=== PATIENT | male | born 1980 | race Caucasian/White ===

== ENCOUNTER 2019-03-13 17:04 | Emergency (ER) | payer OTHER ==
[2019-03-13] MEDS ORDERED: NALOXONE HCL 0.4 MG/ML VIAL ONE ×2 (17:24→18:15)
[2019-03-13 17:48] VITALS: BMI 29.7
[2019-03-13] MEDS ORDERED: NALOXONE HCL 0.4 MG/ML VIAL IVPUSH ONE ×3 (17:57→18:06)
--- NOTE | 2019-03-13 18:03 | PDOC ---
History of Present Illness - General Chief Complaint: Overdose Stated Complaint: Overdose Time Seen by Provider: 03/13/19 17:28 History Source: Patient Exam Limitations: No Limitations - History of Present Illness Initial Comments: 03/13/19 19:08 39 yo male pmh HIV (CD4 count 413 and viral load undetectable) and heroin abuse (only snorts, never OD or required hospitalization/rehab) presents to the ED after a Heroin OD. EMS report finding heroin at the house, pt unconscious given 1mg narcan IV with improvement however, on arrival to the ED, pt became less conscious, RR 10 with 02 saturation in the 80s, placed on 4L NC, saturation in the high 90s, and given 0.4 mg Narcan with 2 min of improvement. Another 0.4 mg narcan given and again, only a few min of improvement in RR to the mid teens observed with shallow breaths. Pt continued to rest in bed with eyes closed however responsive to verbal stimuli when promted. Pt protecting airway with normal O2 saturation and AOX4. Another 1 mg Narcan given and pt shows significant improvement, sitting up in bed, eyes open, RR 18 and up with 100% O2 on RA, drinking and eating. Past History - Past Medical History Allergies/Adverse Reactions: Allergies Allergy/AdvReac Type Severity Reaction Status Date / Time No Known Allergies Allergy Verified 03/13/19 17:35 Home Medications: Ambulatory Orders Dextroamphetamine/Amphetamine [Adderall Xr 30 mg Capsule] 1 cap PO DAILY Emtricitab/Rilpiviri/Tenof Ala [Odefsey Tablet] 1 each PO DAILY #30 tablet 02/18 Nicotine Polacrilex [Nicotine Gum] 4 mg BC QID #2 box 03/04/19 Blood Pressure Test Kit-Medium [Blood Pressure Monitor] 1 each MC DAILY #1 kit 03/09/19 Ciprofloxacin 0.3% Eye Drops [Ciloxan 0.3% Eye Drops --] 1 drop OU Q2H #1 drops 03/09/19 Anemia: No Asthma: No Cancer: No Cardiac Disorders: No CVA: No COPD: No CHF: No Dementia: No Diabetes: No GI Disorders: No Disorders: No HTN: No Hypercholesterolemia: No Liver Disease: Yes Psychiatric Problems: Yes (heroin abuse) Seizures: No Thyroid Disease: No - Suicide/Smoking/Psychosocial Hx Smoking History: Unknown if ever smoked Have you smoked in the past 12 months: No Information on smoking cessation initiated: No Hx Alcohol Use: No Drug/Substance Use Hx: No Substance Use Type: None Hx Substance Use Treatment: No Review of Systems - Review of Systems Constitutional: No: Chills, Fever HEENTM: No: Blurred Vision, Double Vision Respiratory: No: Shortness of Breath, Stridor, Wheezing Cardiac (ROS): No: Chest Pain, Edema ABD/GI: No: Constipated, Diarrhea, Nausea, Vomiting, Abdominal cramping : No: Burning, Dysuria, Discharge, Frequency, Flank Pain Musculoskeletal: No: Back Pain Neurological: No: Headache, Numbness, Paresthesia, Weakness, Unsteady Gait, Ataxia, Dizziness Psychiatric: No: Anxiety *Physical Exam - Vital Signs Last Vital Signs Temp Pulse Resp BP Pulse Ox 98.2 F 98 H 12 102/67 100 03/13/19 17:05 03/13/19 17:27 03/13/19 17:27 03/13/19 17:27 03/13/19 17:05 - Physical Exam General Appearance: Yes: Nourished, Appropriately Dressed, Moderate Distress ( slow shallow breathing ) HEENT: positive: EOMI, RENUKA, Hearing Grossly Normal. negative: Pale Conjunctivae, Photophobia Neck: positive: Supple. negative: Carotid bruit Respiratory/Chest: positive: Lungs Clear, Normal Breath Sounds, Respiratory Distress (slow shallow breathing ). negative: Accessory Muscle Use, Crackles, Rales, Rhonchi, Wheezing Cardiovascular: positive: Regular Rhythm, Regular Rate, S1, S2. negative: Edema , JVD, Murmur Vascular Pulses: Dorsalis-Pedis (R): 4+, Doralis-Pedis (L): 4+ Gastrointestinal/Abdominal: positive: Flat, Soft. negative: Protuberent, Distended, Guarding, Rebound, Tenderness Musculoskeletal: negative: CVA Tenderness Extremity: positive: Normal Capillary Refill, Normal Inspection Integumentary: positive: Normal Color, Dry, Warm Neurologic: positive: cnc cutting operator II-XII NML intact, Fully Oriented, Alert (to verbal stimuli ), Normal Mood/Affect, Normal Response, Motor Strength /5 ED Treatment Course - LABORATORY CBC & Chemistry Diagram: 03/13/19 18:36 03/13/19 18:42 Medical Decision Making - Medical Decision Making 03/13/19 21:31 39 yo male pmh HIV (CD4 count 413 and viral load undetectable) and heroin abuse (only snorts, never OD or required hospitalization/rehab) presents to the ED after a Heroin OD. EMS report finding heroin at the house, pt unconscious given 1mg narcan IV with improvement however, on arrival to the ED, pt became less conscious, RR 10 with 02 saturation in the 80s, placed on 4L NC, saturation in the high 90s, and given 0.4 mg Narcan with 2 min of improvement. Another 0.4 mg narcan given and again, only a few min of improvement in RR to the mid teens observed with shallow breaths. Pt continued to rest in bed with eyes closed however responsive to verbal stimuli when promted. Pt protecting airway with normal O2 saturation and AOX4. Another 1 mg Narcan given and pt shows significant improvement, sitting up in bed, eyes open, RR 18 and up with 100% O2 on RA, drinking and eating. Will reassess at 9pm prior to DC, and walk the pt to ensure resolution of intoxication Labs WNL Denies SI/HI Pt eating, drinking and ambulating without difficulty Denies wanting to go to rehab and denies needing help with resources to stop heroin however DC plans will include information Labs stable Pt safe for DC home *DC/Admit/Observation/Transfer Diagnosis at time of Disposition: Overdose Qualifiers: Encounter type: initial encounter Injury intent: accidental or unintentional Qualified Code(s): T50.901A - Poisoning by unspecified drugs, medicaments and biological substances, accidental (unintentional), initial encounter - Discharge Dispostion Disposition: HOME Condition at time of disposition: Stable Decision to Admit order: No - Referrals - Patient Instructions Printed Discharge Instructions: DI for Drug Overdose in Adults Additional Instructions: You must see your Primary Doctor within the next 48 hours. Stop using Heroin immediately and go to rehab if assistance is needed. We discussed further options if you need help quitting your addiction and the ER is always available if you need help. Return to the ER immediately for new or concerning symptoms including but not limited to: high fevers, headaches, difficulty breathing, inability to eat or drink, chest pain. Thank you - Post Discharge Activity
[2019-03-13 19:05] LABS: BASO % 0.2 % (0-2.0); EOS % 0.2 % (0-4.5); HEMATOCRIT 44.9 % (35.4-49); HEMOGLOBIN 15.5 GM/dL (11.7-16.9); LYMPH % 5.8 % (8-40); MCH 33.2 pg (25.7-33.7); MCHC 34.5 g/dl (32.0-35.9); MEAN CELL VOLUME 96.2 fl (80-96); MEAN PLT VOLUME 7.8 fl (7.5-11.1); MONO % 6.9 % (3.8-10.2); NEUT % 86.9 % (42.8-82.8); PLATELET COUNT 197 K/MM3 (134-434); RBC 4.67 M/mm3 (4.00-5.60); RDW 13.5 % (11.9-15.9); WHITE BLOOD COUNT 8.5 K/mm3 (4.0-10.0)
--- NOTE | 2019-03-13 20:09 | PDOC ---
Documentation entered by Minal Singer SCRIBE, acting as scribe for Elida Jang MD. Elida Jang MD: This documentation has been prepared by the Enmanuel velez Adrianna, SCRIBE, under my direction and personally reviewed by me in its entirety. I confirm that the documentation accurately reflects all work, treatment, procedures, and medical decision making performed by me. Attending Attestation - Resident Resident Name: EvitaaugustinMichael - ED Attending Attestation I have performed the following: I have examined & evaluated the patient, The case was reviewed & discussed with the resident, I agree w/resident's findings & plan, Exceptions are as noted - HPI HPI: The patient is a 39 year old male, with a significant PMH of heroin abuse, HIV, liver disease, and ADHD, who presents to the ED BIBEMS from home for overdose. Patient notes he tried a new batch of heroin, and is unsure of exactly what was in it. He is unsure of who called EMS, but does note that his mom was home during this time. As per EMS, patient was cyanotic in the field upon arrival. He was administered 1mg of Narcan en route to the ED. Patient is a poor historian secondary to current state. Denies any history of overdosing on heroin. Allergies: NKA, NKDA Surgical History: None reported Social History: Heroin abuse - Physicial Exam PE: GENERAL: +Lethargic, but arousable. AOx3 HEAD: No signs of trauma EYES: PERRLA, EOMI, sclera anicteric, conjunctiva clear ENT: Auricles normal inspection, hearing grossly normal, nares patent, oropharynx clear without exudates. Moist mucosa NECK: Normal ROM, supple, no lymphadenopathy, JVD, or masses LUNGS: +Shallow breathing. +Respiratory rate of 12. Breath sounds equal, clear to auscultation bilaterally. No wheezes, and no crackles HEART: Regular rate and rhythm, normal S1 and S2, no murmurs, rubs or gallops ABDOMEN: Soft, nontender, normoactive bowel sounds. No guarding, no rebound. No masses EXTREMITIES: Normal range of motion, no edema. No cords, erythema, or tenderness BACK: No midline spinal tenderness in cervical/thoracic/lumbar region. No deformities or stepoffs NEUROLOGICAL: Normal speech, cranial nerves intact, 5/5 strength in all 4 extremities, normal sensation to light touch in all 4 extremities, gait deferred SKIN: +Track blackburn throughout. Warm, Dry, normal turgor. - Medical Decision Making 03/13/19 18:04 39yo M hx HIV, heroin abuse presents to the ED after heroine OD Pt got 1mg narcan IV en route to ED On arrival here, initially good respiratory effort but pt had episode of apnea requiring 0.4mg narcan -> 0.4mg narcan ->1mg narcan with good response 1mg was given at 605pm Will continue to observe pt for 3 hours 03/13/19 21:03 Pt well appearing Ambulaitng in ED w steady gait HEad to toe trauma exam negative Pt clincially sober Pt is not interested in detox at this time If rpt vitals wnl, will DC 03/13/19 22:13 Rpt vitals wnl O2 sat 94%, on my recheck 97% on RA Pt clinically sober and stable for DC home I discussed the physical exam findings, ancillary test results and final diagnoses with the patient. I answered all of the patient's questions. The patient was satisfied with the care received and felt comfortable with the discharge plan and treatment plan. The patient will call their primary care physician within 24 hours to arrange follow-up and will return to the Emergency Department with any new, persistent or worsening symptoms. Heart Score/ECG Review #1 03/13/19 20:04 Twelve-lead EKG was performed and reviewed by me. Normal sinus rhythm, rate 92. Normal axis. No ST elevations.
[2019-03-13 20:19] LABS: ALBUMIN 3.8 g/dl (3.4-5.0); BILIRUBIN,TOTAL 0.2 mg/dL (0.2-1); BLOOD UREA NITROGEN 9.5 mg/dL (7-18); CALCIUM 8.6 mg/dL (8.5-10.1); CREATININE 1.1 mg/dL (0.55-1.3); POTASSIUM 4.5 mmol/L (3.5-5.1); TOT PROT 7.7 g/dl (6.4-8.2)
[2019-03-13 22:02] VITALS: BP 103/72; PULSE 78; TEMP 98.1
--- NOTE | 2019-03-15 13:40 | EKG ---
Test Reason : Blood Pressure : / mmHG Vent. Rate : 092 BPM Atrial Rate : 092 BPM P-R Int : 146 ms QRS Dur : 094 ms QT Int : 376 ms P-R-T Axes : 067 037 058 degrees QTc Int : 464 ms NORMAL SINUS RHYTHM NONSPECIFIC T WAVE ABNORMALITY PROLONGED QT ABNORMAL ECG NO PREVIOUS ECGS AVAILABLE Confirmed by MD VINI, GONZALEZ ([id number]) on 03/15/2019 1:40:28 PM Referred By: Confirmed By:GONZALEZ MARTINI MD
== END 2019-03-14 00:35 | disposition home or self-care (01) ==
LOC: JER 17:04
PROC: 3E033GC Introduction of Other Therapeutic Substance into Peripheral Vein, Percutaneous Approach (ICD-10-PCS; principal; 2019-03-13)
DX: T40.1X1A Poisoning by heroin, accidental (unintentional), initial encounter (principal); Z21 Asymptomatic human immunodeficiency virus [HIV] infection status
CPT/HCPCS: 36415; 71045-TC-FY; 80053; 85025; 93005; 93010; 96374; 96376; 99283-25

== ENCOUNTER → 2019-05-05 | Outpatient (CLI) | payer OTHER | LOC: YHH 10:21 ==